=== PATIENT | female | born 2000 | race Two or more races ===

== ENCOUNTER → 2022-06-09 | Outpatient (REF) | payer OTHER ==
[~2022-06-09] MED LIST: METF-839
== END ==
LOC: M SFHCWAGY 18:06
PROVIDERS: ATTEND Specialist
DX: Z01.419 Encounter for gynecological examination (general) (routine) without abnormal findings (principal)

== ENCOUNTER → 2022-07-01 | Outpatient (REF) | payer OTHER | LOC: M SFHCWAGY 17:18 | PROVIDERS: ATTEND Specialist | DX: Z12.4 Encounter for screening for malignant neoplasm of cervix (principal) ==